=== PATIENT | male | born 1945 | race African-American/Black ===

== ENCOUNTER 2017-06-21 16:36 | Emergency (ER) | payer MEDICARE, OTHER ==
[~2017-06-21] VITALS: Ht 175.3 cm; Wt 70.5 kg
[~2017-06-21 16:36] MED LIST: METF500T4 PO
[2017-06-21] MEDS ORDERED: ASPI-556 PO (16:47)
[2017-06-21] MEDS ORDERED: ATOR40TA28 PO (16:47)
[2017-06-21] MEDS ORDERED: SAXA2.5T PO (16:47)
[2017-06-21] MEDS ORDERED: GLIP5 PO (16:47)
[2017-06-21] MEDS ORDERED: LISI-662 PO (16:47)
[2017-06-21] MEDS ORDERED: AMLO-512 PO (16:47)
[2017-06-21] MEDS ORDERED: CARV6 PO (16:47)
[2017-06-21 16:52] LABS: GLUCOSE,POINT OF CARE 148 MG/DL (70-110)
[2017-06-21 17:01] VITALS: BP 168/120
== END 2017-06-21 18:24 | disposition home or self-care (01) ==
LOC: EMS 16:38
DX: R19.7 Diarrhea, unspecified (principal); E11.9 Type 2 diabetes mellitus without complications; E78.00 Pure hypercholesterolemia, unspecified; I10 Essential (primary) hypertension; Z79.82 Long term (current) use of aspirin
CPT/HCPCS: 82962; 99282